=== PATIENT | male | born 2000 | race Caucasian/White ===

== ENCOUNTER 2022-09-20 19:04 | Emergency (ER) | payer BC ==
[~2022-09-20] VITALS: Ht 185.5 cm; Wt 88.5 kg
--- NOTE | 2022-09-20 20:02 | ED Psychosocial ---
General Chief Complaint: Psych/Social Disorder Stated Complaint: ANXIETY Nursing Triage Note: Pt presents with c/o anxiety/panic attack. Pt states he was driving home tonight and started having some anxiety. He states he had a hx of panic attacks but has not taken his lexapro for 3-4 years and has only had minor issues. During his drive he experienced racing thoughts, pins and needles feelings, light headed ness. He didnt feel he could drive all the way to [place] with these symptoms. Source: patient History of Present Illness Date Seen by Provider: Sep 20, 2022 Time Seen by Provider: 19:53 Initial Comments PT ARRIVES VIA POV PT STATES HE WAS DRIVING AND HAD A PANIC ATTACK--LASTED FROM [id number] STATES HE FEELS FINE NOW PT STATES "I'VE DEALT WITH ANXIETY SINCE I WAS 13 YEARS OLD" STATES HE WAS ON LEXAPRO IN THE PAST, BUT HAS NOT BEEN ON IT FOR 3-4 YEARS, AND HAD NOT HAD A BAD ANXIETY/PANIC ATTACK FOR A FEW YEARS STATES HE HAS HAD ONLY MINOR ISSUES WITH ANXIETY SINCE THEN. PT STATES HE IS FROM [place], HAD DRIVEN TO [place] TO WATCH HIS GIRLFRIEND PLAY GOLF IN [employer], AND WAS DRIVING BACK TO [place] FROM [place] WHEN HIS SYMPTOMS BEGAN HE DENIES ANY TRIGGER--PT STATES THEY WILL OFTEN COME ON FOR NO APPARENT REASON, AND TODAY WAS NO DIFFERENT THAN WHAT HE HAS PREVIOUSLY EXPERIENCED HE CALLED HIS MOM AND PT STATES SHE TOLD HIM TO STOP BY HERE AND GET CHECKED OUT. PT STATES HE FEELS FINE NOW, AND FEELS COMFORTABLE DRIVING BACK TO [place]. PT STATES WHEN HE WAS HAVING THE PANIC ATTACK, HE HAD CHEST TIGHTNESS, RACING THOUGHTS, FELT LIGHTHEADED AND HAD PINS AND NEEDLES FEELING ALL OVER, AND HAD "A SENSE OF PANIC" HE HAD 1 CUP OF COFFEE THIS MORNING, OTHERWISE NO CAFFEINE. NO STIMULANT USE, NO OTC COLD MEDICATIONS WITH SUDAFED OR OTHER STIMULANTS. PCP: DR. DELANEY WITH CLINIC IN [place]. Allergies and Home Medications Patient Home Medication List Home Medication List Reviewed: Yes Review of Systems Constitutional: see HPI EENTM: no symptoms reported Respiratory: no symptoms reported Cardiovascular: see HPI Gastrointestinal: no symptoms reported Genitourinary: no symptoms reported Musculoskeletal: no symptoms reported Skin: no symptoms reported Psychiatric/Neurological: See HPI Past Xxlubok-Hhpoxa-Xrjdnt Hx Patient Social History Tobacco Use?: No Use of E-Cig and/or Vaping dev: No Substance use?: No Alcohol Use?: No Immunizations Up To Date Influenza Vaccine Up-to-Date: Yes; Up-to-Date First/Initial COVID19 Vaccinat: yes Second COVID19 Vaccination Neri: yes Seasonal Allergies Seasonal Allergies: Yes Past Medical History Surgeries: No Respiratory: No Cardiac: No Neurological: No Genitourinary: No Gastrointestinal: No Musculoskeletal: No Endocrine: No HEENT: No Cancer: No Psychosocial: Yes (PANIC ATTACKS) Anxiety Integumentary: No Blood Disorders: No Physical Exam Vital Signs - First Documented 09/20/22 09/20/22 19:22 20:09 Temp 36.8 Pulse 75 Resp 18 B/P (MAP) 145/85 (105) Pulse Ox 98 O2 Delivery Room Air Capillary Refill : Height, Weight, BMI Height: '" Weight: lbs. oz. kg; 25.00 BMI Method: General Appearance: WD/WN, no apparent distress Neck: normal inspection Respiratory: normal breath sounds, no respiratory distress, no accessory muscle use Cardiovascular: regular rate, rhythm, no murmur Gastrointestinal: non tender Extremities: normal inspection, normal capillary refill Neurologic/Psychiatric: order packer II-XII nml as tested, no motor/sensory deficits, alert, normal mood/affect, oriented x 3 Appearance/Memory: appropriate appearance, appropriate insight, neat, no memory impairment Behavior/Eye Contact: cooperative, good eye contact, normal speech Thoughts/Hallucinations: normal thought pattern, no apparent hallucination; No delusions, No flight of ideas Skin: normal color, warm/dry Progress/Results/Core Measures Results/Orders Vital Signs/I&O 09/20/22 09/20/22 19:22 20:09 Temp 36.8 Pulse 75 88 Resp 18 18 B/P (MAP) 145/85 (105) 150/94 Pulse Ox 98 O2 Delivery Room Air Blood Pressure Mean: 105 Progress Progress Note : Progress Note REASSURANCE GIVEN TO PT PT STATES HE WILL FOLLOW UP WITH HIS IN [place] THIS WEEK, TO DISCUSS GETTING BACK ON LEXAPRO OR TO HAVE A PRN MEDICATION TO TAKE, HE DOES NOT HAVE THESE EPISODES VERY OFTEN Departure Impression Primary Impression: Anxiety Disposition: 01 HOME, SELF-CARE Condition: Stable Departure-Patient Inst. Decision time for Depature: 20:01 Referrals: NO,LOCAL PHYSICIAN (PCP) Primary Care Physician Patient Instructions: Panic Disorder (DC) Add. Discharge Instructions: FOLLOW UP WITH YOUR REGULAR DR. THIS WEEK FOR FURTHER CARE RETURN TO ER IF YOUR SYMPTOMS WORSEN All discharge instructions reviewed with patient and/or family. Voiced understanding. JOLIE ESQUEDA DO Sep 20, 2022 20:01
[2022-09-20 20:09] VITALS: BP 150/94
== END 2022-09-20 20:09 | disposition home or self-care (01) ==
LOC: ER 19:16
DX: F41.0 Panic disorder [episodic paroxysmal anxiety] (principal)
CPT/HCPCS: 99281